=== PATIENT | female | born 1970 | race Caucasian/White ===

== ENCOUNTER 2016-12-02 09:47 | Emergency (ER) | payer OTHER ==
[2016-12-02] MEDS ORDERED: KETOROLAC 30 MG/ML VIAL ONE ×2 (10:58→11:36)
== END 2016-12-02 12:57 | disposition home or self-care (01) ==
LOC: ER 09:47
DX: J15.9 Unspecified bacterial pneumonia (principal); J18.1 Lobar pneumonia, unspecified organism; M25.50 Pain in unspecified joint
CPT/HCPCS: 36415; 71020; 85025; 85652; 87804; 96374